=== PATIENT | female | born 1970 | race Caucasian/White ===

== ENCOUNTER 2020-06-18 17:45 | Outpatient (CLI) | payer OTHER, MEDICARE, BC ==
--- OUTSIDE RECORDS SUMMARY | 2020-06-28 20:47 | EXTERNAL MEDICAL SUMMARY RPT | Continuity of Care Document ---
:1970 Demographics Phone Unavailable Preferred Language Unknown Marital Status Unknown Jain Affiliation Unknown Race Unknown Ethnic Group Unknown Author Organization [facility] Address [address] [phone] Phone Problems date description facility [id number] [facility] 20200624 Secondary malignant neoplasm of brain [facility] Social History date description facility [id number]
== END 2020-06-18 17:46 | disposition critical access hospital (66) ==
LOC: EMS 17:45
PROVIDERS: ATTEND Emergency Medicine
DX: R40.4 Transient alteration of awareness (principal); S69.90XA Unspecified injury of unspecified wrist, hand and finger(s), initial encounter; V57.5XXA Driver of pick-up truck or van injured in collision with fixed or stationary object in traffic accident, initial encounter; Y93.89 Activity, other specified; Y92.821 Forest as the place of occurrence of the external cause
CPT/HCPCS: A0425; A0429

== ENCOUNTER 2020-06-18 18:10 | Emergency (ER) | payer OTHER, MEDICARE, BC ==
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
[2020-06-18 19:16] LABS: BASOPHILS % (AUTO) 0.5 %; EOSINOPHILS # (AUTO) 0.1 10^3/uL (0.0-0.7); EOSINOPHILS % (AUTO) 1.6 %; HCT - HEMATOCRIT 39.3 % (37.0-47.0); HGB - HEMOGLOBIN 14.1 g/dL (12.0-16.0); LYMPHOCYTES # (AUTO) 1.4 10^3/uL (1.5-3.5); LYMPHOCYTES % (AUTO) 17.1 %; MEAN CORPUSCULAR HEMOGLOBIN 37.5 pg (27.0-31.0); MEAN CORPUSCULAR HGB CONC 35.9 g/dL (32.0-36.0); MEAN CORPUSCULAR VOLUME 104.5 fL (81.0-99.0); MEAN PLATELET VOLUME 9.3 fL (7.9-10.8); MONOCYTES # (AUTO) 0.5 10^3/uL (0.0-1.0); MONOCYTES % (AUTO) 6.5 %; NEUTROPHILS # (AUTO) 5.9 10^3/uL (1.5-6.6); NEUTROPHILS % (AUTO) 73.9 %; PLT - PLATELET COUNT 141 10^3/uL (130-450); RED BLOOD COUNT 3.76 10^6/uL (4.20-5.40); RED CELL DISTRIBUTION WIDTH 13.5 % (12.0-15.0)
[2020-06-18 19:33] LABS: ACETAMINOPHEN < 10 ug/mL (10-30); ALBUMIN 4.2 g/dL (3.2-5.5); ALBUMIN/GLOBULIN RATIO 1.3 (1.0-2.2); ALKALINE PHOSPHATASE 86 IU/L (42-121); ALT ALANINE AMINOTRANSFERASE 15 IU/L (10-60); AST ASPARTATE AMINOTRANSFERASE 21 IU/L (10-42); BILIRUBIN,TOTAL 1.4 mg/dL (0.2-1.0); BUN - BLOOD UREA NITROGEN 15 mg/dL (6-20); CALCIUM 9.5 mg/dL (8.5-10.3); CARBON DIOXIDE - CO2 25 mmol/L (21-32); CHLORIDE 103 mmol/L (101-111); ETOH - ETHANOL < 5.0 mg/dL; GFR - MDRD 59 (>89); GLUCOSE 119 mg/dL (70-100); LIPASE 34 U/L (22-51); POTASSIUM 3.4 mmol/L (3.5-5.0); SALICYLATE < 6.0 mg/dL; SODIUM 138 mmol/L (135-145); TOTAL PROTEIN 7.4 g/dL (6.7-8.2)
[2020-06-18] MEDS ORDERED: IBUPROFEN 600 MG TABLET PO STA (20:32)
[2020-06-18] MEDS ORDERED: POTASSIUM CHLORIDE 20 MEQ TABLET PO STA (21:12)
--- NOTE | 2020-06-18 21:39 | ED Physician Documentation ---
ED Addendum - Addendum Addendum: 06/18/20 21:36 I discussed results with patient at approximately 8:50 PM. She is AAOx3, requests ibuprofen for generalized FITZGERALD. I explained that I would contact her neurologist to discuss possibly starting a medication to raise seizure threshold. She says she does not have a neurologist. She asks that I contact her hem/onc or else her neurosurgeon. Dr. Short (neurosurgery at [facility]) paged, awaiting call back from that group. Patient also requests that I discuss results of tests and plan with her father, Benji. 06/18/20 21:44 D/W patient's father, Benji (retired thoracic surgeon) and reviewed test results and currently plan (waiting to hear from neurosurgery at [facility] to discuss dis position). 06/18/20 22:09 Continuing to wait to hear from [facility] neurosurgeon revenue enforcement collection agent. second page had been placed. 06/18/20 23:00 Continuing to wait to hear from [facility] neurosurgeon revenue enforcement collection agent. Third page has been placed. 06/19/20 02:34 Shortly after midnight, I heard back from [facility] neurosurgeon revenue enforcement collection agent (Dr. Benji Hall). He reviewed the images and says the findings on CTH are comparable to recent MRI performed earlier this month. He agrees patient is appropriate for d/c home, recommends 1000mg BID keppra, first dose in ED, and patient to f/u this coming week with her neurosurgeon
[2020-06-18 21:54] LABS: MUDS CUTOFF CONCENTRATIONS CUTOFF CONC BELOW:
[2020-06-18 21:59] LABS: BILIRUBIN,URINE NEGATIVE (NEGATIVE); GLUCOSE, URINE (UA) NEGATIVE (NEGATIVE); KETONES,URINE (UA) NEGATIVE (NEGATIVE); LEUKOCYTE ESTERASE, URINE NEGATIVE (NEGATIVE); NITRITE,URINE NEGATIVE (NEGATIVE); OCCULT BLOOD,URINE NEGATIVE (NEGATIVE); PROTEIN,URINE NEGATIVE (NEGATIVE); UROBILINOGEN,URINE 2 E.U./dL (NORMAL)
[2020-06-18 22:03] LABS: CLARITY,URINE HAZY (CLEAR); HCG UR QUAL NEGATIVE
[2020-06-18 22:12] LABS: RBC,URINE 0-5 /HPF (0-5); SQUAMOUS EPITHELIAL CELL,UR RARE Squamous (<= Few); WBC,URINE 0-3 /HPF (0-5)
[2020-06-18 22:13] LABS: AMPHETAMINE SCREEN,URINE NEGATIVE (NEGATIVE); BACTERIA,URINE Rare /HPF (None Seen); BARBITURATE SCREEN,UR NEGATIVE (NEGATIVE); BENZODIAZEPINES SCREEN, URINE NEGATIVE (NEGATIVE); COCAINE SCREEN URINE NEGATIVE (NEGATIVE); METHADONE SCREEN, URINE NEGATIVE (NEGATIVE); METHAMPHETAMINES SCREEN, URINE NEGATIVE (NEGATIVE); MUCUS,URINE Marked Strands; OPIATE SCREEN, URINE NEGATIVE (NEGATIVE); OXYCODONE SCREEN, URINE NEGATIVE (NEGATIVE); PROPOXYPHENE SCREEN, URINE NEGATIVE (NEGATIVE); THC CANNABINOID SCREEN, URINE POSITIVE (NEGATIVE); TRICYCLIC ANTIDEPRESSANT,URINE NEGATIVE (NEGATIVE)
[2020-06-19] MEDS ORDERED: levETIRAcetam 250 MG TABLET PO STA (01:10)
[2020-06-19 01:52] VITALS: BP 121/81
== END 2020-06-19 01:51 | disposition home or self-care (01) ==
LOC: ED 18:10
DX: R56.9 Unspecified convulsions (principal); M25.531 Pain in right wrist; V47.0XXA Car driver injured in collision with fixed or stationary object in nontraffic accident, initial encounter; Y92.410 Unspecified street and highway as the place of occurrence of the external cause; R51.9 Headache, unspecified; C50.919 Malignant neoplasm of unspecified site of unspecified female breast; C79.31 Secondary malignant neoplasm of brain; C78.7 Secondary malignant neoplasm of liver and intrahepatic bile duct
CPT/HCPCS: 36415; 70450; 71045; 73110; 80053; 80306; 80307; 80320; 80329; 81001; 81025; 83690; 84443; 85025; 99284; 99285; A9270; 81003; 87086